=== PATIENT | male | born 1995 | race Caucasian/White ===

== ENCOUNTER 2016-04-26 12:44 | Emergency (ER) | payer OTHER ==
[2016-04-26 12:54] VITALS: BP 113/89; PULSE 82; RESP 16; TEMP 97.5; O2SAT 93
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
== END 2016-04-26 14:35 | disposition home or self-care (01) ==
PROC: 0CQ1XZZ Repair Lower Lip, External Approach (ICD-10-PCS; principal; 2016-04-26)
DX: S02.92XA Unspecified fracture of facial bones, initial encounter for closed fracture (principal); S01.511A Laceration without foreign body of lip, initial encounter; Y04.8XXA Assault by other bodily force, initial encounter; Y92.149 Unspecified place in prison as the place of occurrence of the external cause

== ENCOUNTER 2016-06-14 06:35 | Emergency (ER) | payer OTHER ==
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
[2016-06-14 08:53] VITALS: BP 119/72; PULSE 80; RESP 14; TEMP 97.9; O2SAT 98
== END 2016-06-14 08:53 | disposition home or self-care (01) ==
DX: S02.2XXA Fracture of nasal bones, initial encounter for closed fracture (principal); S02.82XA Fracture of other specified skull and facial bones, left side, initial encounter for closed fracture; Y04.0XXA Assault by unarmed brawl or fight, initial encounter; Y92.149 Unspecified place in prison as the place of occurrence of the external cause

== ENCOUNTER 2016-08-06 17:23 | Emergency (ER) | payer OTHER ==
[2016-08-06 17:36] VITALS: BP 120/86; PULSE 76; RESP 16; TEMP 97.9; O2SAT 96
--- NOTE | 2016-08-06 18:01 | EDPHY ---
General - History Smoking Status: Never smoked Narrative: I was not able to examine this patient as he left without being seen. He chose to be discharged home without being evaluated. Vital signs were stable and is sharp. I cannot provide any further documentation as I did not see this patient. (Bola Guardaod) Patient was not seen by myself. I did not discussed this patient's care with ZARINA Espinoza, as the patient was not evaluated by any medical staff in the emergency department. He left without evaluation. (Tiffanie Thomas) - Objective Vital Signs: Initial Vital Signs Temperature (C) 36.6 C 08/06/16 17:32 Heart Rate 76 08/06/16 17:32 Respiratory Rate 16 08/06/16 17:32 Blood Pressure 120/86 H 08/06/16 17:32 O2 Sat (%) 96 08/06/16 17:32 O2 Delivery Mode Room Air Allergies/Adverse Reactions: No Known Allergies Allergy (Unverified 07/22/15 02:04) Departure - Departure Disposition: Left Without Being Seen Clinical Impression: Nasal airway abnormality Referrals: Guido Parada MD [Primary Care Provider] - As per Instructions
== END 2016-08-06 17:55 | disposition left against medical advice (07) ==
DX: Z53.21 Procedure and treatment not carried out due to patient leaving prior to being seen by health care provider (principal)